=== PATIENT | male | born 1980 | race Two or more races ===

== ENCOUNTER 2021-08-06 10:39 | Emergency (ER) | payer OTHER ==
[2021-08-06] MEDS ORDERED: CYCLOBENZAPRINE10 MG PO (13:19)
[2021-08-06] MEDS ORDERED: NAPROSYN500 MG PO (13:19)
== END 2021-08-06 13:30 | disposition home or self-care (01) ==
LOC: ER1 10:39
DX: S39.012A Strain of muscle, fascia and tendon of lower back, initial encounter (principal); S76.912A Strain of unspecified muscles, fascia and tendons at thigh level, left thigh, initial encounter; S46.912A Strain of unspecified muscle, fascia and tendon at shoulder and upper arm level, left arm, initial encounter; S46.911A Strain of unspecified muscle, fascia and tendon at shoulder and upper arm level, right arm, initial encounter; V49.9XXA Car occupant (driver) (passenger) injured in unspecified traffic accident, initial encounter
CPT/HCPCS: 71045; 72100; 73552; 96372; 99283; J1885